=== PATIENT | female | born 1955 | race Hispanic/Latino ===

== ENCOUNTER 2020-10-22 08:42 | Inpatient (IN) | payer MEDICARE ==
[~2020-10-22] VITALS: Ht 152.4 cm; Wt 126.6 kg
[2020-10-22] VITALS (9 sets, daily range): BP systolic 118–146; BP diastolic 75–90
[2020-10-22 09:38] LABS: BASOPHILS % 0.5 % (0.0-1.0); EOSINOPHILS # (AUTO) 0.1 (0.0-0.4); EOSINOPHILS % 1.7 % (0.0-6.0); HEMATOCRIT 36.6 % (34.2-44.1); HEMOGLOBIN 10.3 g/dL (12.0-16.0); LYMPHOCYTES # (AUTO) 0.4 (1.0-3.2); LYMPHOCYTES % 6.3 % (18.0-39.1); MEAN CORPUSCULAR HEMOGLOBIN 26.7 pg (28-32); MEAN CORPUSCULAR HGB CONC 28.1 g/dL (31-35); MEAN CORPUSCULAR VOLUME 94.8 fL (81-99); MONOCYTES # (AUTO) 0.4 (0.2-0.8); MONOCYTES % 5.4 % (4.4-11.3); NEUTROPHILS # (AUTO) 5.7 (2.1-6.9); NEUTROPHILS % 85.5 % (38.7-80.0); PLATELET COUNT 218 x10e3/uL (140-360); RED BLOOD COUNT 3.86 x10e6/uL (3.6-5.1); RED CELL DISTRIBUTION WIDTH 13.2 % (11.7-14.4)
[2020-10-22] MEDS ORDERED: REMERON30 MG PO (09:50)
[2020-10-22] MEDS ORDERED: ULTRAM 50MG50 MG PO (09:50)
[2020-10-22] MEDS ORDERED: GABAPENTIN100 MG PO (09:50)
[2020-10-22] MEDS ORDERED: DOCUSATE SODIU100 MG PO (09:50)
[2020-10-22] MEDS ORDERED: NORVASC10 MG PO (09:50)
[2020-10-22 09:52] LABS: CLARITY,URINE SL CLOUDY (CLEAR); COLOR,URINE YELLOW (YELLOW); KETONES,URINE 2+ (NEGATIVE); LEUKOCYTE ESTERASE ,URINE NEGATIVE (NEGATIVE); NITRITE,URINE NEGATIVE (NEGATIVE); PROTEIN,URINE DIPSTICK NEGATIVE (NEGATIVE); URINE UROBILINOGEN >=8 mg/dL (0.2 - 1)
[2020-10-22 09:54] LABS: ABG PCO2 104 mmHg (35-45); ABG PH 7.33 (7.35-7.45); ABG PO2 61 mmHg (80-105)
[2020-10-22 09:55] LABS: ABG HCO3 56 mmol/L (22-26); ABG TCO2 50
[2020-10-22] MEDS ORDERED: CYMBALTA30 MG PO (09:57)
[2020-10-22] MEDS ORDERED: IPRAT-ALBUT 0.5-3 ML PO (09:57)
[2020-10-22] MEDS ORDERED: ACETAZOLAMIDE250 MG PO (09:57)
[2020-10-22] MEDS ORDERED: MECLIZINE HCL12.5 MG PO (09:57)
[2020-10-22 10:00] LABS: BACTERIA,URINE MANY /HPF; EPITHELIAL CELLS,URINE FEW /LPF; TRANSITIONAL EPI CELLS,URINE FEW
[2020-10-22 10:06] LABS: ALANINE AMINOTRANSFERASE 14 IU/L (0-55); ALBUMIN 2.9 g/dL (3.5-5.0); ALBUMIN/GLOBULIN RATIO 0.7 (0.8-2.0); ALKALINE PHOSPHATASE 91 IU/L (40-150); ANION GAP 13.6 mmol/L (8-16); BLOOD UREA NITROGEN 18 mg/dL (7-26); BUN/CREATININE RATIO 37 (6-25); CALCIUM 9.4 mg/dL (8.4-10.2); CHLORIDE 88 mmol/L (98-107); CREATINE KINASE 8 IU/L (29-168); CREATININE, SERUM 0.49 mg/dL (0.57-1.11); EST GLOMERULAR FILTRATION RATE > 60 ML/MIN (60-); GLUCOSE 186 mg/dL (74-118); MAGNESIUM 1.6 MG/DL (1.3-2.1); POTASSIUM 4.6 mmol/L (3.5-5.1); SODIUM 147 mmol/L (136-145)
[2020-10-22 10:07] LABS: B-TYPE NATRIURETIC PEPTIDE2 34.7 pg/mL (0-100); INR 0.92
[2020-10-22 10:08] LABS: CARBON DIOXIDE 50 mmol/L (22-29)
[2020-10-22] MEDS ORDERED: MEROPENEM 1GM 100 ML IV STA (10:42)
[2020-10-22] MEDS ORDERED: AZITHROMYCIN 500MG/NS 250 ML 250 ML IV ONE (11:00)
[2020-10-22] MEDS: PROPOFOL IV EMULSION 10 MG/ML 50 ML VIAL IV PRN ×2 (11:27→13:30)
[2020-10-22] MEDS ORDERED: PROPOFOL IV EMULSION 50 ML IV ONE ×2 (11:32→13:32)
[2020-10-22] MEDS ORDERED: MIDAZOLAM HCL 5MG/ML 10ML VIAL 100 ML IV ONE (11:58)
[2020-10-22] MEDS ORDERED: VANCOMYCIN 1GM/NS 250 ML 250 ML IV ONE (12:30)
[2020-10-22] MEDS ORDERED: VANCOMYCIN HCL 1GM/NS 250 ML BAG IV ONE (12:30)
[2020-10-22] MEDS ORDERED: MIDAZOLAM HCL 5MG/ML 10ML VIAL 100 ML IV PRN (12:30)
[2020-10-22] MEDS ORDERED: LACTULOSE SYRUP 20 GM/30 ML UDC PO PRN (12:45)
[2020-10-22] MEDS ORDERED: ALBUTEROL/IPRATROPIUM 3 ML NEB NEB PRN (12:45)
[2020-10-22 12:52] LABS: ABG PCO2 113 mmHg (35-45); ABG PH 7.32 (7.35-7.45); ABG PO2 123 mmHg (80-105)
[2020-10-22 12:53] LABS: ABG HCO3 56 mmol/L (22-26); ABG TCO2 50
[2020-10-22] MEDS ORDERED: DEXTROSE 50% SYRINGE 50 ML IV PRN (13:00)
[2020-10-22 13:39] LABS: ABG PCO2 44 mmHg (35-45); ABG PH 7.67 (7.35-7.45)
[2020-10-22 13:40] LABS: ABG HCO3 50 mmol/L (22-26); ABG PO2 146 mmHg (80-105); ABG TCO2 50
[2020-10-22] MEDS: VANCOMYCIN 1GM/NS 250 ML 250 ML IV SCH (14:44)
[2020-10-22] MEDS: PROPOFOL IV EMULSION 10MG/ML 100ML BTL IV PRN ×2 (15:07→19:14)
[2020-10-22 16:24] LABS: ABG HCO3 46 mmol/L (22-26); ABG PCO2 43 mmHg (35-45); ABG PH 7.64 (7.35-7.45); ABG PO2 51 mmHg (80-105); ABG TCO2 47
[2020-10-22] MEDS: INSULIN REGULAR, HUMAN 100 UNIT/1 ML 3ML VIAL SQ SCH ×2 (17:08→21:50)
[2020-10-22] MEDS: ENOXAPARIN SOD INJ 40 MG/0.4 ML SYR SC SCH (17:24)
[2020-10-22 19:25] LABS: CREATINE KINASE 12 IU/L (29-168)
[2020-10-22 21:44] LABS: ABG HCO3 49 mmol/L (22-26); ABG PCO2 52 mmHg (35-45); ABG PH 7.58 (7.35-7.45); ABG PO2 89 mmHg (80-105); ABG TCO2 50
[2020-10-22] MEDS: MIRTAZAPINE 15 MG TAB PO SCH (21:47)
[2020-10-22] MEDS: ACETAZOLAMIDE 250 MG TAB PO SCH (21:47)
[2020-10-22] MEDS: FAMOTIDINE 20 MG/2 ML VIAL IV SCH (21:47)
[2020-10-22] MEDS: MEROPENEM 1GM 100 ML IV SCH (22:27)
[2020-10-23] VITALS (26 sets, daily range): BP systolic 104–159; BP diastolic 64–96
[2020-10-23] MEDS: VANCOMYCIN 1GM/NS 250 ML 250 ML IV SCH ×2 (03:53→15:10)
[2020-10-23 06:12] LABS: BASOPHILS % 0.4 % (0.0-1.0); EOSINOPHILS # (AUTO) 0.3 (0.0-0.4); EOSINOPHILS % 4.2 % (0.0-6.0); HEMATOCRIT 33.2 % (34.2-44.1); HEMOGLOBIN 9.7 g/dL (12.0-16.0); LYMPHOCYTES # (AUTO) 1.1 (1.0-3.2); LYMPHOCYTES % 15.9 % (18.0-39.1); MEAN CORPUSCULAR HEMOGLOBIN 26.2 pg (28-32); MEAN CORPUSCULAR HGB CONC 29.2 g/dL (31-35); MEAN CORPUSCULAR VOLUME 89.7 fL (81-99); MONOCYTES # (AUTO) 0.5 (0.2-0.8); NEUTROPHILS # (AUTO) 4.8 (2.1-6.9); NEUTROPHILS % 71.2 % (38.7-80.0); PLATELET COUNT 201 x10e3/uL (140-360); RED CELL DISTRIBUTION WIDTH 13.3 % (11.7-14.4)
[2020-10-23] MEDS: MEROPENEM 1GM 100 ML IV SCH ×3 (06:20→22:45)
[2020-10-23 06:35] LABS: ALANINE AMINOTRANSFERASE 9 IU/L (0-55); ALBUMIN 2.5 g/dL (3.5-5.0); ALBUMIN/GLOBULIN RATIO 0.7 (0.8-2.0); ALKALINE PHOSPHATASE 73 IU/L (40-150); ANION GAP 11.8 mmol/L (8-16); BLOOD UREA NITROGEN 21 mg/dL (7-26); BUN/CREATININE RATIO 38 (6-25); CALCIUM 8.7 mg/dL (8.4-10.2); CHLORIDE 93 mmol/L (98-107); CREATININE, SERUM 0.55 mg/dL (0.57-1.11); EST GLOMERULAR FILTRATION RATE > 60 ML/MIN (60-); GLUCOSE 169 mg/dL (74-118); SODIUM 145 mmol/L (136-145)
[2020-10-23 06:44] LABS: CARBON DIOXIDE 43 mmol/L (22-29); POTASSIUM 2.8 mmol/L (3.5-5.1)
[2020-10-23 06:54] LABS: CREATINE KINASE MB 0.2 ng/mL (0-5.0)
[2020-10-23] MEDS: INSULIN REGULAR, HUMAN 100 UNIT/1 ML 3ML VIAL SQ SCH ×4 (08:15→21:27)
[2020-10-23] MEDS: FAMOTIDINE 20 MG/2 ML VIAL IV SCH ×2 (08:15→20:02)
[2020-10-23] MEDS: ACETAZOLAMIDE 250 MG TAB PO SCH ×3 (08:15→21:14)
[2020-10-23] MEDS: DULOXETINE HCL 30 MG DELAYED RELEASE PO SCH (09:00)
[2020-10-23] MEDS ORDERED: POTASSIUM CHLORIDE 20MEQ/100ML 200 ML IV PRN (09:15)
[2020-10-23] MEDS ORDERED: POTASSIUM CHLORIDE 20MEQ/100ML 200 ML IV ONE (09:15)
[2020-10-23 11:20] LABS: ABG HCO3 45 mmol/L (22-26); ABG PCO2 64 mmHg (35-45); ABG PH 7.46 (7.35-7.45); ABG PO2 92 mmHg (80-105); ABG TCO2 47
[2020-10-23] MEDS: PROPOFOL IV EMULSION 10MG/ML 100ML BTL IV PRN ×3 (11:30→21:00)
[2020-10-23] MEDS ORDERED: VECURONIUM BROMIDE FOR INJ 20 MG VIAL ONE (12:31)
[2020-10-23] MEDS ORDERED: ETOMIDATE 2 MG/ML 10 ML INJ IV ONE (12:31)
[2020-10-23] MEDS ORDERED: WATER STERILE 10 ML VIAL ONE (12:31)
[2020-10-23] MEDS ORDERED: SUCCINYLCHOLINE CHLORIDE 20 MG/ML 10ML VIAL ONE (12:31)
[2020-10-23] MEDS: ENOXAPARIN SOD INJ 40 MG/0.4 ML SYR SC SCH (17:14)
[2020-10-23] MEDS: ACETAMINOPHEN 325 MG TAB PO PRN (20:02)
[2020-10-23] MEDS: MIRTAZAPINE 15 MG TAB PO SCH (20:02)
[2020-10-24] VITALS (17 sets, daily range): BP systolic 102–144; BP diastolic 66–97
[2020-10-24 03:18] LABS: BASOPHILS % 0.5 % (0.0-1.0); EOSINOPHILS # (AUTO) 0.4 (0.0-0.4); EOSINOPHILS % 5.3 % (0.0-6.0); HEMATOCRIT 34.9 % (34.2-44.1); HEMOGLOBIN 10.4 g/dL (12.0-16.0); LYMPHOCYTES % 15.5 % (18.0-39.1); MEAN CORPUSCULAR HEMOGLOBIN 26.6 pg (28-32); MEAN CORPUSCULAR HGB CONC 29.8 g/dL (31-35); MEAN CORPUSCULAR VOLUME 89.3 fL (81-99); MONOCYTES # (AUTO) 0.4 (0.2-0.8); MONOCYTES % 6.7 % (4.4-11.3); NEUTROPHILS # (AUTO) 4.7 (2.1-6.9); NEUTROPHILS % 70.8 % (38.7-80.0); PLATELET COUNT 220 x10e3/uL (140-360); RED BLOOD COUNT 3.91 x10e6/uL (3.6-5.1); RED CELL DISTRIBUTION WIDTH 13.9 % (11.7-14.4)
[2020-10-24 03:36] LABS: MAGNESIUM 1.5 MG/DL (1.3-2.1); PHOSPHORUS 2.1 MG/DL (2.3-4.7)
[2020-10-24 03:41] LABS: ALANINE AMINOTRANSFERASE 9 IU/L (0-55); ALBUMIN 2.5 g/dL (3.5-5.0); ALBUMIN/GLOBULIN RATIO 0.7 (0.8-2.0); ALKALINE PHOSPHATASE 75 IU/L (40-150); ANION GAP 15.2 mmol/L (8-16); BLOOD UREA NITROGEN 20 mg/dL (7-26); BUN/CREATININE RATIO 36 (6-25); CALCIUM 8.9 mg/dL (8.4-10.2); CARBON DIOXIDE 36 mmol/L (22-29); CHLORIDE 95 mmol/L (98-107); CREATININE, SERUM 0.55 mg/dL (0.57-1.11); EST GLOMERULAR FILTRATION RATE > 60 ML/MIN (60-); GLUCOSE 181 mg/dL (74-118); POTASSIUM 3.2 mmol/L (3.5-5.1); SODIUM 143 mmol/L (136-145)
[2020-10-24] MEDS: VANCOMYCIN 1GM/NS 250 ML 250 ML IV SCH ×2 (03:49→13:57)
[2020-10-24] MEDS: MEROPENEM 1GM 100 ML IV SCH ×3 (05:11→21:58)
[2020-10-24] MEDS: PROPOFOL IV EMULSION 10MG/ML 100ML BTL IV PRN ×2 (05:43)
[2020-10-24] MEDS: INSULIN REGULAR, HUMAN 100 UNIT/1 ML 3ML VIAL SQ SCH ×4 (07:15→21:40)
[2020-10-24] MEDS: DULOXETINE HCL 30 MG DELAYED RELEASE PO SCH (08:08)
[2020-10-24] MEDS: FAMOTIDINE 20 MG/2 ML VIAL IV SCH ×2 (08:08→21:40)
[2020-10-24] MEDS: ACETAZOLAMIDE 250 MG TAB PO SCH ×2 (08:08→21:40)
[2020-10-24 09:05] LABS: ABG HCO3 40 mmol/L (22-26); ABG PCO2 54 mmHg (35-45); ABG PH 7.48 (7.35-7.45); ABG PO2 136 mmHg (80-105); ABG TCO2 42
[2020-10-24] MEDS: ENOXAPARIN SOD INJ 40 MG/0.4 ML SYR SC SCH (16:10)
[2020-10-24] MEDS: MIRTAZAPINE 15 MG TAB PO SCH (21:40)
[2020-10-25] VITALS (16 sets, daily range): BP systolic 109–141; BP diastolic 61–83
[2020-10-25] MEDS: VANCOMYCIN 1GM/NS 250 ML 250 ML IV SCH ×2 (03:30→14:50)
[2020-10-25] MEDS: MEROPENEM 1GM 100 ML IV SCH ×3 (05:36→22:29)
[2020-10-25 05:49] LABS: BASOPHILS # (AUTO) 0.1 (0.0-0.1); BASOPHILS % 0.8 % (0.0-1.0); EOSINOPHILS # (AUTO) 0.3 (0.0-0.4); EOSINOPHILS % 4.2 % (0.0-6.0); HEMATOCRIT 34.2 % (34.2-44.1); LYMPHOCYTES # (AUTO) 0.7 (1.0-3.2); LYMPHOCYTES % 11.2 % (18.0-39.1); MEAN CORPUSCULAR HEMOGLOBIN 26.3 pg (28-32); MEAN CORPUSCULAR HGB CONC 29.2 g/dL (31-35); MONOCYTES # (AUTO) 0.5 (0.2-0.8); MONOCYTES % 7.5 % (4.4-11.3); NEUTROPHILS # (AUTO) 4.6 (2.1-6.9); PLATELET COUNT 201 x10e3/uL (140-360); RED CELL DISTRIBUTION WIDTH 13.9 % (11.7-14.4)
[2020-10-25 06:27] LABS: ALANINE AMINOTRANSFERASE 9 IU/L (0-55); ALBUMIN 2.4 g/dL (3.5-5.0); ALBUMIN/GLOBULIN RATIO 0.7 (0.8-2.0); ALKALINE PHOSPHATASE 71 IU/L (40-150); ANION GAP 10.5 mmol/L (8-16); BLOOD UREA NITROGEN 13 mg/dL (7-26); BUN/CREATININE RATIO 28 (6-25); CALCIUM 8.5 mg/dL (8.4-10.2); CARBON DIOXIDE 34 mmol/L (22-29); CHLORIDE 103 mmol/L (98-107); CREATININE, SERUM 0.47 mg/dL (0.57-1.11); EST GLOMERULAR FILTRATION RATE > 60 ML/MIN (60-); GLUCOSE 205 mg/dL (74-118); POTASSIUM 3.5 mmol/L (3.5-5.1); SODIUM 144 mmol/L (136-145)
[2020-10-25] MEDS: INSULIN REGULAR, HUMAN 100 UNIT/1 ML 3ML VIAL SQ SCH ×4 (07:01→21:02)
[2020-10-25] MEDS ORDERED: POTASSIUM CHLORIDE 10MEQ EA PO ONE (07:45)
[2020-10-25 08:27] LABS: HYPOCHROMASIA MODE; PLATELET ESTIMATE ADEQUATE; PLATELET MORPHOLOGY COMMENT FEW LARGE; POLYCHROMASIA FEW; RBC MORPHOLOGY COMMENT NORMAL
[2020-10-25 08:28] LABS: ANISOCYTOSIS SLIG; MICROCYTOSIS SLIG; POIKILOCYTOSIS SLIGHT
[2020-10-25] MEDS: DULOXETINE HCL 30 MG DELAYED RELEASE PO SCH (08:29)
[2020-10-25] MEDS: ACETAZOLAMIDE 250 MG TAB PO SCH ×2 (08:29→21:01)
[2020-10-25] MEDS: FAMOTIDINE 20 MG/2 ML VIAL IV SCH ×2 (08:29→21:01)
[2020-10-25] MEDS: ENOXAPARIN SOD INJ 40 MG/0.4 ML SYR SC SCH (16:38)
[2020-10-25] MEDS: ACETAMINOPHEN 325 MG TAB PO PRN (19:21)
[2020-10-25] MEDS: MIRTAZAPINE 15 MG TAB PO SCH (21:01)
[2020-10-25] MEDS ORDERED: SODIUM CHLORIDE 0.9% 250ML 250 ML ONE (22:22)
[2020-10-26] VITALS (12 sets, daily range): BP systolic 102–143; BP diastolic 60–83
[2020-10-26] MEDS: VANCOMYCIN 1GM/NS 250 ML 250 ML IV SCH (03:30)
[2020-10-26] MEDS: MEROPENEM 1GM 100 ML IV SCH (05:46)
[2020-10-26 06:36] LABS: BASOPHILS % 0.6 % (0.0-1.0); EOSINOPHILS # (AUTO) 0.4 (0.0-0.4); EOSINOPHILS % 6.5 % (0.0-6.0); HEMATOCRIT 35.1 % (34.2-44.1); LYMPHOCYTES # (AUTO) 0.8 (1.0-3.2); LYMPHOCYTES % 12.8 % (18.0-39.1); MEAN CORPUSCULAR HEMOGLOBIN 26.2 pg (28-32); MEAN CORPUSCULAR HGB CONC 28.5 g/dL (31-35); MEAN CORPUSCULAR VOLUME 91.9 fL (81-99); MONOCYTES # (AUTO) 0.5 (0.2-0.8); MONOCYTES % 8.2 % (4.4-11.3); NEUTROPHILS # (AUTO) 4.7 (2.1-6.9); NEUTROPHILS % 70.8 % (38.7-80.0); PLATELET COUNT 233 x10e3/uL (140-360); RED BLOOD COUNT 3.82 x10e6/uL (3.6-5.1)
[2020-10-26 06:53] LABS: ALANINE AMINOTRANSFERASE 10 IU/L (0-55); ALBUMIN 2.4 g/dL (3.5-5.0); ALBUMIN/GLOBULIN RATIO 0.7 (0.8-2.0); ALKALINE PHOSPHATASE 63 IU/L (40-150); ANION GAP 10.8 mmol/L (8-16); BLOOD UREA NITROGEN 15 mg/dL (7-26); BUN/CREATININE RATIO 36 (6-25); CALCIUM 8.3 mg/dL (8.4-10.2); CARBON DIOXIDE 34 mmol/L (22-29); CHLORIDE 103 mmol/L (98-107); CREATININE, SERUM 0.42 mg/dL (0.57-1.11); EST GLOMERULAR FILTRATION RATE > 60 ML/MIN (60-); GLUCOSE 130 mg/dL (74-118); POTASSIUM 3.8 mmol/L (3.5-5.1); SODIUM 144 mmol/L (136-145)
[2020-10-26] MEDS: INSULIN REGULAR, HUMAN 100 UNIT/1 ML 3ML VIAL SQ SCH ×2 (08:02→11:30)
[2020-10-26] MEDS ORDERED: CEFTAZIDIME 1 GM VIAL IV SCH (09:00)
[2020-10-26 09:10] LABS: HYPOCHROMASIA SLIGHT; PLATELET ESTIMATE ADEQUATE; PLATELET MORPHOLOGY COMMENT NORMAL
[2020-10-26] MEDS: FAMOTIDINE 20 MG/2 ML VIAL IV SCH (09:30)
[2020-10-26] MEDS: ACETAZOLAMIDE 250 MG TAB PO SCH (09:30)
[2020-10-26] MEDS: DULOXETINE HCL 30 MG DELAYED RELEASE PO SCH (09:30)
[2020-10-26] MEDS ORDERED: CEFTAZIDIME SOD 1 GM/NS 50ML 50 ML IV SCH (10:00)
[2020-10-26] MEDS ORDERED: HEPARIN SOD (PORCINE) 5,000 UNIT/ML VIAL SC SCH (10:00)
== END 2020-10-26 16:15 | disposition short-term general hospital (02) | DRG 871 ==
LOC: ER 09:31 → ERHOLD 12:16 → ICU 14:33
PROC: 5A1945Z Respiratory Ventilation, 24-96 Consecutive Hours (ICD-10-PCS; principal; 2020-10-22)
PROC: 0BH18EZ Insertion of Endotracheal Airway into Trachea, Via Natural or Artificial Opening Endoscopic (ICD-10-PCS; 2020-10-22)
DX: A41.9 Sepsis, unspecified organism (principal); J15.6 Pneumonia due to other Gram-negative bacteria; J96.22 Acute and chronic respiratory failure with hypercapnia; Z68.44 Body mass index [BMI] 60.0-69.9, adult; N39.0 Urinary tract infection, site not specified; Z16.12 Extended spectrum beta lactamase (ESBL) resistance; Z68.43 Body mass index [BMI] 50.0-59.9, adult; Z20.822 Contact with and (suspected) exposure to COVID-19; E66.01 Morbid (severe) obesity due to excess calories; G47.33 Obstructive sleep apnea (adult) (pediatric); Z86.16 Personal history of COVID-19; E11.9 Type 2 diabetes mellitus without complications; D50.0 Iron deficiency anemia secondary to blood loss (chronic); B96.20 Unspecified Escherichia coli [E. coli] as the cause of diseases classified elsewhere; R62.7 Adult failure to thrive
CPT/HCPCS: 31500; 36415; 36569; 36600; 51700; 70450; 71045; 74018; 80053; 80202; 81001; 82140; 82550; 82553; 82805; 82948; 83605; 83735; 83880; 84100; 84484; 85025; 85610; 85730; 87040; 87070; 87086; 87186; 87205; 93005; 94002; 94003; 94660; 96372; 97139; 99285; J0330; J0456; J0713; J1644; J1650; J1817; J3370; J3480; J7050; U0002

== ENCOUNTER 2021-05-28 10:47 | Inpatient (IN) | payer MEDICARE, OTHER ==
[~2021-05-28] VITALS: Ht 167.6 cm; Wt 126.6 kg
[2021-05-28] VITALS (12 sets, daily range): BP systolic 93–127; BP diastolic 51–79
[~2021-05-28 10:47] MED LIST: ACETAZOLAMIDE250 MG PO; CYMBALTA30 MG PO; DOCUSATE SODIU100 MG PO; GABAPENTIN100 MG PO; IPRAT-ALBUT 0.5-3 ML PO; MECLIZINE HCL12.5 MG PO; NORVASC10 MG PO; REMERON30 MG PO; ULTRAM 50MG50 MG PO
[2021-05-28] MEDS ORDERED: SODIUM CHLORIDE 0.9% 1000ML 1,000 ML IV STA (10:54)
[2021-05-28] MEDS ORDERED: CEFTRIAXONE 1 GM in SODIUM CHLORIDE 0.9% 50ML 50 ML IV ONE (11:00)
[2021-05-28 11:24] LABS: BASOPHILS % 0.3 % (0.0-1.0); EOSINOPHILS # (AUTO) 0.2 (0.0-0.4); EOSINOPHILS % 3.2 % (0.0-6.0); HEMATOCRIT 39.2 % (34.2-44.1); HEMOGLOBIN 10.9 g/dL (12.0-16.0); LYMPHOCYTES # (AUTO) 0.5 (1.0-3.2); LYMPHOCYTES % 7.5 % (18.0-39.1); MEAN CORPUSCULAR HEMOGLOBIN 27.9 pg (28-32); MEAN CORPUSCULAR HGB CONC 27.8 g/dL (31-35); MEAN CORPUSCULAR VOLUME 100.5 fL (81-99); MONOCYTES # (AUTO) 0.4 (0.2-0.8); MONOCYTES % 6.2 % (4.4-11.3); NEUTROPHILS # (AUTO) 5.5 (2.1-6.9); NEUTROPHILS % 82.5 % (38.7-80.0); PLATELET COUNT 167 x10e3/uL (140-360); RED CELL DISTRIBUTION WIDTH 13.1 % (11.7-14.4)
[2021-05-28 11:34] LABS: CLARITY,URINE CLEAR (CLEAR); COLOR,URINE YELLOW (YELLOW); KETONES,URINE TRACE (NEGATIVE); LEUKOCYTE ESTERASE ,URINE NEGATIVE (NEGATIVE); NITRITE,URINE NEGATIVE (NEGATIVE); PROTEIN,URINE DIPSTICK TRACE (NEGATIVE)
[2021-05-28 11:35] LABS: URINE UROBILINOGEN 0.2 mg/dL (0.2 - 1)
[2021-05-28 11:41] LABS: ALBUMIN 2.4 g/dL (3.5-5.0); ALBUMIN/GLOBULIN RATIO 0.7 (0.8-2.0); ANION GAP 10.2 mmol/L (8-16); CALCIUM 8.3 mg/dL (8.4-10.2); CREATININE, SERUM 0.5 mg/dL (0.57-1.11); POTASSIUM 4.2 mmol/L (3.5-5.1)
[2021-05-28 11:47] LABS: BACTERIA,URINE FEW /HPF; EPITHELIAL CELLS,URINE FEW /LPF; RBC,URINE 0-5 /HPF (0-5); TRANSITIONAL EPI CELLS,URINE FEW
[2021-05-28] MEDS ORDERED: Vancomycin IV 2 GM in SODIUM CHLORIDE 0.9% 500ML 500 ML IV ONE (12:30)
[2021-05-28] MEDS ORDERED: SODIUM CHLORIDE 0.9% IV STA (12:48)
[2021-05-28] MEDS ORDERED: NOREPINEPHRINE 8 MG/D5W 250 ML 250 ML IV SCH (13:00)
[2021-05-28] MEDS ORDERED: SODIUM CHLORIDE 0.9% 1000ML 1,000 ML ONE (13:00)
[2021-05-28] MEDS ORDERED: SODIUM CHLORIDE 0.9% 1000ML 1,000 ML IV ONE ×2 (13:00→16:00)
[2021-05-28] MEDS ORDERED: MEROPENEM 1 GM in SODIUM CHLORIDE 0.9% 100 ML IV STA (13:04)
[2021-05-28] MEDS ORDERED: ALBUTEROL/IPRATROPIUM 3 ML NEB NEB PRN (15:45)
[2021-05-28] MEDS: DOCUSATE SODIUM 100 MG CAP PO SCH (17:33)
[2021-05-28] MEDS ORDERED: ATIVAN0.5 MG PO (19:07)
[2021-05-28] MEDS ORDERED: LACTULOSE20 GM/30 M PO (19:07)
[2021-05-28] MEDS ORDERED: RISPERIDONE0.5 MG PO (19:07)
[2021-05-28] MEDS: MIRTAZAPINE 15 MG TAB PO SCH (21:00)
[2021-05-28] MEDS: MEROPENEM 1 GM in SODIUM CHLORIDE 0.9% 100 ML IV SCH (22:29)
[2021-05-29] VITALS (17 sets, daily range): BP systolic 92–148; BP diastolic 50–94
[2021-05-29] MEDS: MEROPENEM 1 GM in SODIUM CHLORIDE 0.9% 100 ML IV SCH ×3 (05:32→22:35)
[2021-05-29] MEDS ORDERED: NOREPINEPHRINE 8 MG/D5W 250 ML 250 ML IV PRN (07:30)
[2021-05-29] MEDS: DOCUSATE SODIUM 100 MG CAP PO SCH ×2 (08:20→16:47)
[2021-05-29] MEDS: DULOXETINE HCL 30 MG DELAYED RELEASE PO SCH (08:58)
[2021-05-29] MEDS ORDERED: DULOXETINE HCL 30 MG DELAYED RELEASE PO SCH (09:00)
[2021-05-29 09:36] LABS: BASOPHILS # (AUTO) 0.1 (0.0-0.1); BASOPHILS % 0.9 % (0.0-1.0); EOSINOPHILS # (AUTO) 0.2 (0.0-0.4); EOSINOPHILS % 3.6 % (0.0-6.0); HEMATOCRIT 37.9 % (34.2-44.1); HEMOGLOBIN 10.7 g/dL (12.0-16.0); LYMPHOCYTES # (AUTO) 0.4 (1.0-3.2); LYMPHOCYTES % 7.8 % (18.0-39.1); MEAN CORPUSCULAR HEMOGLOBIN 28.2 pg (28-32); MEAN CORPUSCULAR HGB CONC 28.2 g/dL (31-35); MONOCYTES # (AUTO) 0.5 (0.2-0.8); MONOCYTES % 8.9 % (4.4-11.3); NEUTROPHILS # (AUTO) 4.4 (2.1-6.9); NEUTROPHILS % 78.3 % (38.7-80.0); PLATELET COUNT 163 x10e3/uL (140-360); RED BLOOD COUNT 3.79 x10e6/uL (3.6-5.1); RED CELL DISTRIBUTION WIDTH 13.1 % (11.7-14.4)
[2021-05-29 09:54] LABS: ALBUMIN 2.2 g/dL (3.5-5.0); ALBUMIN/GLOBULIN RATIO 0.7 (0.8-2.0); CALCIUM 7.9 mg/dL (8.4-10.2); CREATININE, SERUM 0.43 mg/dL (0.57-1.11)
[2021-05-29] MEDS: MIRTAZAPINE 15 MG TAB PO SCH (21:15)
[2021-05-29] MEDS: RISPERIDONE 0.5 MG TAB PO PRN (21:15)
[2021-05-29] MEDS: TRAMADOL HCL 50 MG TAB PO PRN (21:43)
[2021-05-30] VITALS (18 sets, daily range): BP systolic 103–156; BP diastolic 52–86
[2021-05-30 05:13] LABS: BASOPHILS % 0.5 % (0.0-1.0); EOSINOPHILS # (AUTO) 0.3 (0.0-0.4); EOSINOPHILS % 4.6 % (0.0-6.0); HEMATOCRIT 35.8 % (34.2-44.1); HEMOGLOBIN 10.2 g/dL (12.0-16.0); LYMPHOCYTES # (AUTO) 0.7 (1.0-3.2); MEAN CORPUSCULAR HEMOGLOBIN 27.9 pg (28-32); MEAN CORPUSCULAR HGB CONC 28.5 g/dL (31-35); MEAN CORPUSCULAR VOLUME 97.8 fL (81-99); MONOCYTES # (AUTO) 0.5 (0.2-0.8); MONOCYTES % 7.6 % (4.4-11.3); NEUTROPHILS # (AUTO) 4.5 (2.1-6.9); NEUTROPHILS % 75.8 % (38.7-80.0); PLATELET COUNT 168 x10e3/uL (140-360); RED BLOOD COUNT 3.66 x10e6/uL (3.6-5.1)
[2021-05-30] MEDS: MEROPENEM 1 GM in SODIUM CHLORIDE 0.9% 100 ML IV SCH ×3 (05:40→21:13)
[2021-05-30 05:42] LABS: ALBUMIN 2.1 g/dL (3.5-5.0); ALBUMIN/GLOBULIN RATIO 0.7 (0.8-2.0); ANION GAP 10.5 mmol/L (8-16); CALCIUM 7.6 mg/dL (8.4-10.2); CREATININE, SERUM 0.42 mg/dL (0.57-1.11); POTASSIUM 3.5 mmol/L (3.5-5.1)
[2021-05-30] MEDS: DOCUSATE SODIUM 100 MG CAP PO SCH ×2 (08:58→17:54)
[2021-05-30] MEDS: DULOXETINE HCL 30 MG DELAYED RELEASE PO SCH (08:58)
[2021-05-30] MEDS: TRAMADOL HCL 50 MG TAB PO PRN ×2 (10:34→21:14)
[2021-05-30] MEDS: MIRTAZAPINE 15 MG TAB PO SCH (21:13)
[2021-05-31] VITALS (23 sets, daily range): BP systolic 103–142; BP diastolic 53–71
[2021-05-31] MEDS: MEROPENEM 1 GM in SODIUM CHLORIDE 0.9% 100 ML IV SCH ×3 (05:59→21:12)
[2021-05-31] MEDS: DOCUSATE SODIUM 100 MG CAP PO SCH ×2 (08:15→16:34)
[2021-05-31] MEDS: DULOXETINE HCL 30 MG DELAYED RELEASE PO SCH (08:15)
[2021-05-31] MEDS: RISPERIDONE 0.5 MG TAB PO PRN (09:38)
[2021-05-31] MEDS: TRAMADOL HCL 50 MG TAB PO PRN ×2 (09:44→18:12)
[2021-05-31] MEDS ORDERED: SODIUM CHLORIDE 0.9% 50ML 100 ML ONE (14:42)
[2021-05-31] MEDS: MIRTAZAPINE 15 MG TAB PO SCH (20:41)
[2021-06-01] VITALS (8 sets, daily range): BP systolic 105–144; BP diastolic 45–67
[2021-06-01] MEDS: RISPERIDONE 0.5 MG TAB PO PRN (03:00)
[2021-06-01] MEDS: TRAMADOL HCL 50 MG TAB PO PRN (03:00)
[2021-06-01] MEDS: MEROPENEM 1 GM in SODIUM CHLORIDE 0.9% 100 ML IV SCH (05:28)
[2021-06-01] MEDS: DULOXETINE HCL 30 MG DELAYED RELEASE PO SCH (08:47)
[2021-06-01] MEDS: DOCUSATE SODIUM 100 MG CAP PO SCH (08:47)
== END 2021-06-01 13:00 | DRG 871 ==
LOC: ER 10:57 → ERHOLD 13:04 → ICU 15:03
PROC: 02HV33Z Insertion of Infusion Device into Superior Vena Cava, Percutaneous Approach (ICD-10-PCS; principal; 2021-05-28)
PROC: 3E043XZ Introduction of Vasopressor into Central Vein, Percutaneous Approach (ICD-10-PCS; 2021-05-28)
DX: A41.9 Sepsis, unspecified organism (principal); G93.41 Metabolic encephalopathy; R65.21 Severe sepsis with septic shock; J18.9 Pneumonia, unspecified organism; N39.0 Urinary tract infection, site not specified; E66.2 Morbid (severe) obesity with alveolar hypoventilation; Z68.42 Body mass index [BMI] 45.0-49.9, adult; J96.10 Chronic respiratory failure, unspecified whether with hypoxia or hypercapnia; I11.0 Hypertensive heart disease with heart failure; I50.9 Heart failure, unspecified; D50.0 Iron deficiency anemia secondary to blood loss (chronic); K59.00 Constipation, unspecified; J42 Unspecified chronic bronchitis; E11.40 Type 2 diabetes mellitus with diabetic neuropathy, unspecified; Z79.899 Other long term (current) drug therapy; Z86.718 Personal history of other venous thrombosis and embolism; Z79.01 Long term (current) use of anticoagulants; Z96.649 Presence of unspecified artificial hip joint; Z98.84 Bariatric surgery status; Z99.81 Dependence on supplemental oxygen
CPT/HCPCS: 36415; 36555; 36569; 71045; 80053; 81001; 82948; 83605; 85025; 87040; 87071; 87086; 87205; 93306; 94799; 99285; J0696; J2185; J3370; J7030; J7040; J7050; U0002

== ENCOUNTER 2022-11-28 19:47 | Observation (INO) | payer MEDICARE, OTHER ==
[~2022-11-28] VITALS: Ht 167.6 cm; Wt 126.6 kg
[~2022-11-28 19:47] MED LIST changes: +ATIVAN0.5 MG PO; +LACTULOSE20 GM/30 M PO; +RISPERIDONE0.5 MG PO
[2022-11-28] MEDS ORDERED: SODIUM CHLORIDE FLUSH 10 ML SYR IV PRN (20:22)
[2022-11-28] MEDS ORDERED: ONDANSETRON HCL INJ 2MG/ML 2ML 2 MG/ML VIAL IV STA (20:22)
[2022-11-28] MEDS ORDERED: ACETAMINOPHEN 1000 MG/100 ML IV STA (20:36)
[2022-11-28 20:42] LABS: BASOPHILS % 0.6 % (0.0-1.0); EOSINOPHILS # (AUTO) 0.3 (0.0-0.4); EOSINOPHILS % 3.7 % (0.0-6.0); HEMATOCRIT 39.9 % (34.2-44.1); LYMPHOCYTES # (AUTO) 1.2 (1.0-3.2); LYMPHOCYTES % 16.4 % (18.0-39.1); MEAN CORPUSCULAR HGB CONC 30.1 g/dL (31-35); MEAN CORPUSCULAR VOLUME 89.7 fL (81-99); MONOCYTES # (AUTO) 0.5 (0.2-0.8); MONOCYTES % 6.7 % (4.4-11.3); NEUTROPHILS # (AUTO) 5.1 (2.1-6.9); NEUTROPHILS % 72.3 % (38.7-80.0); PLATELET COUNT 185 x10e3/uL (140-360); RED BLOOD COUNT 4.45 x10e6/uL (3.6-5.1); RED CELL DISTRIBUTION WIDTH 13.2 % (11.7-14.4)
[2022-11-28 20:51] LABS: INR 0.97; PROTHROMBIN TIME 13.4 seconds (11.9-14.5)
[2022-11-28 20:59] LABS: ALBUMIN 2.9 g/dL (3.5-5.0); ALBUMIN/GLOBULIN RATIO 0.7 (0.8-2.0); ANION GAP 11.5 mmol/L (8-16); CALCIUM 9.2 mg/dL (8.4-10.2); CREATININE, SERUM 0.65 mg/dL (0.57-1.11); POTASSIUM 4.5 mmol/L (3.5-5.1)
[2022-11-28] MEDS ORDERED: IOPAMIDOL 370 MG/ML 100 ML INFUS..BTL INJ ONE (21:02)
[2022-11-28 21:49] LABS: CLARITY,URINE SL CLOUDY (CLEAR); COLOR,URINE YELLOW (YELLOW)
[2022-11-28 21:50] LABS: AMPHETAMINES SCREEN,URINE NEGATIVE (NEGATIVE); BENZODIAZEPINES SCREEN,URINE NEGATIVE (NEGATIVE); KETONES,URINE NEGATIVE (NEGATIVE); LEUKOCYTE ESTERASE ,URINE SMALL (NEGATIVE); NITRITE,URINE POSITIVE (NEGATIVE); PHENCYCLIDINE SCREEN,URINE NEGATIVE (NEGATIVE); PROTEIN,URINE DIPSTICK NEGATIVE (NEGATIVE); URINE UROBILINOGEN 1 mg/dL (0.2 - 1)
[2022-11-28 21:57] LABS: BACTERIA,URINE MANY /HPF
[2022-11-28] MEDS ORDERED: ONDANSETRON HCL INJ 2MG/ML 2ML 2 MG/ML VIAL IV PRN (23:00)
[2022-11-28] MEDS ORDERED: DEXTROSE 50% SYRINGE 50 ML IV PRN (23:00)
[2022-11-29 00:10] VITALS: PULSE 83; RESP 18; O2SAT 100
[2022-11-29] MEDS ORDERED: ACETAMINOPHEN 325 MG TAB PO PRN (03:45)
[2022-11-29 06:25] VITALS: PULSE 74; RESP 20; O2SAT 100
[2022-11-29 06:47] LABS: BASOPHILS # (AUTO) 0.1 (0.0-0.1); BASOPHILS % 0.5 % (0.0-1.0); EOSINOPHILS # (AUTO) 0.2 (0.0-0.4); EOSINOPHILS % 1.6 % (0.0-6.0); HEMATOCRIT 41.3 % (34.2-44.1); HEMOGLOBIN 12.3 g/dL (12.0-16.0); LYMPHOCYTES # (AUTO) 0.4 (1.0-3.2); LYMPHOCYTES % 3.7 % (18.0-39.1); MEAN CORPUSCULAR HEMOGLOBIN 27.3 pg (28-32); MEAN CORPUSCULAR HGB CONC 29.8 g/dL (31-35); MEAN CORPUSCULAR VOLUME 91.8 fL (81-99); MONOCYTES # (AUTO) 0.4 (0.2-0.8); MONOCYTES % 4.5 % (4.4-11.3); NEUTROPHILS # (AUTO) 8.5 (2.1-6.9); NEUTROPHILS % 89.2 % (38.7-80.0); PLATELET COUNT 175 x10e3/uL (140-360); RED CELL DISTRIBUTION WIDTH 13.3 % (11.7-14.4)
[2022-11-29] MEDS: INSULIN REGULAR, HUMAN 100 UNIT/1 ML SQ SCH ×3 (07:30→16:30)
[2022-11-29 08:16] LABS: ALBUMIN/GLOBULIN RATIO 0.8 (0.8-2.0); ANION GAP 11.3 mmol/L (8-16); CALCIUM 9.2 mg/dL (8.4-10.2); CREATININE, SERUM 0.66 mg/dL (0.57-1.11); POTASSIUM 4.3 mmol/L (3.5-5.1)
[2022-11-29] MEDS ORDERED: DOCUSATE SODIUM 100 MG CAP PO SCH (09:00)
[2022-11-29] MEDS ORDERED: SENNOSIDES 8.6 MG TAB PO SCH (09:00)
[2022-11-29] MEDS ORDERED: HYDROCODONE/APAP 7.5MG-325MG 1 EA TAB PO PRN (11:15)
[2022-11-29 13:53] VITALS: BP 117/66; PULSE 96; RESP 20; TEMP 98.8; O2SAT 97
[2022-11-29 14:01] VITALS: BP 117/65; PULSE 96; RESP 20; TEMP 98.8; O2SAT 97
[2022-11-29 15:41] VITALS: BP 118/81; PULSE 96; RESP 20; TEMP 98.7; O2SAT 96
[2022-11-29] MEDS ORDERED: HYDROCODON-ACE1 EAC9 PO (16:15)
[2022-11-29] MEDS ORDERED: ENOXAPARIN SOD INJ 40 MG/0.4 ML SYR SC SCH (17:00)
[2022-11-30] MEDS ORDERED: AZITHROMYCIN 250 MG TAB PO SCH (09:00)
== END 2022-11-29 19:03 ==
LOC: ER 19:50 → ERHOLD 23:04 → INTOOBSV 23:04 → MED/SURG2 11-29 13:10
PROVIDERS: ADMIT Internal Medicine; ATTEND Internal Medicine
DX: J18.9 Pneumonia, unspecified organism (principal); R10.31 Right lower quadrant pain; J96.11 Chronic respiratory failure with hypoxia; I10 Essential (primary) hypertension; J44.9 Chronic obstructive pulmonary disease, unspecified; E78.5 Hyperlipidemia, unspecified; E11.9 Type 2 diabetes mellitus without complications; Z86.718 Personal history of other venous thrombosis and embolism; F41.8 Other specified anxiety disorders; Z68.42 Body mass index [BMI] 45.0-49.9, adult; E66.2 Morbid (severe) obesity with alveolar hypoventilation; G89.29 Other chronic pain
CPT/HCPCS: 0223U; 36415 ×2; 71045 ×2; 74177; 80053 ×2; 80307; 81001; 82948; 83690; 84484; 85025 ×2; 85610; 85730; 87040; 87071; 87205; 93005; 94799; 99285; G0378 ×2; J0131; J0456 ×2; J0696 ×2; J2405; J7050 ×2; Q9967